=== PATIENT | female | born 1975 ===

== ENCOUNTER 2016-08-04 00:53 | Emergency (ER) | payer SELFPAY ==
[2016-08-04 03:07] VITALS: BMI 29.8
== END 2016-08-04 04:00 | disposition home or self-care (01) ==
LOC: H.EROB2 00:53
DX: O47.1 False labor at or after 37 completed weeks of gestation (principal); Z3A.39 39 weeks gestation of pregnancy

== ENCOUNTER 2016-08-08 17:34 | Inpatient (IN) | payer MEDICAID, SELFPAY ==
[2016-08-08] MEDS ORDERED: Lactated Ringer's 1,000 ML IV SCH (18:00)
[2016-08-08] MEDS ORDERED: Oxycodone/Acetaminophen 5/325 mg Tab PO PRN ×4 (19:11→21:58)
[2016-08-08] MEDS ORDERED: Benzocaine/Menthol SPRAY TOP PRN ×2 (19:11→21:58)
[2016-08-08 19:29] LABS: HEMATOCRIT 34.8 % (34.0-47.0); MEAN CELL VOLUME 80.1 fl (81.0-99.0); MEAN CORPUSCULAR HEMOGLOBIN 25.6 pg (27.0-31.0); RED CELL DISTRIBUTION WIDTH 17.1 % (11.5-14.5)
[2016-08-08 20:04] VITALS: BP 117/69; PULSE 70; RESP 18; O2SAT 100
--- NOTE | 2016-08-08 20:55 | OBDS ---
DELIVERY PERSONNEL Delivery Doctor: Doug Rivero MD Resident: Samuel MATERNAL INFORMATION Delivery Anesthesia: None Medications in Delivery: pitocin Estimated Blood Loss (ml): 150 Placenta Cultured: No Maternal Complications: None Provider Comments: of a live baby boy at 18:59 pm from cephalic presentation . The baby was bu lb suctioned on the perineum and transferred to maternal chest. No nuchal cord was noted. The cord wa s clamped, 3 vessel noted. Cord blood was obtained and sent to the lab. the placenta was delivered at 19:02 intact. Estimated blood loss was 150 ml. There was perineal lac 1st degree, that was repaired . The mother tolerated the procedure well. Baby to nursery with 9-9. LABOR SUMMARY EDC: 08/03/2016 00:00 No. Babies in Womb: 1 Attempted: No Labor Anesthesia: None LABOR INFORMATION Reason for Induction: Not Applicable Onset of Labor: 08/08/2016 05:00 Complete Dilatation: 08/08/2016 18:45 Oxytocin: N/A Group B Beta Strep: Negative Antibiotics # of Doses: 0 Antibiotics Time of Last Dose: none given Steroids Given: None Reason Steroids Not Administered: Not Applicable Other Reason Not Administered: not required MEMBRANES Membranes Rupture Method: Spontaneous Rupture of Membranes: 08/08/2016 18:45 Length of Rupture (hrs): 0.23 Amniotic Fluid Color: Clear Amniotic Fluid Amount: Small Amniotic Fluid Odor: Normal STAGES OF LABOR Stage 1 hrs: 13 Stage 1 min: 45 Stage 2 hrs: 0 Stage 2 min: 14 Stage 3 hrs: 0 Stage 3 min: 3 Total Time in Labor hrs: 14 Total Time in Labor min: 2 VAGINAL DELIVERY Episiotomy: None Laceration Extension: First Degree Laceration Type: Perineal Laceration Repair: Yes Laceration Repair Note: laceration repair 1st degre was repaired using 1% local lidocaine anesthesi a and Vicryl 3-0 subcuticular.procedure well tolerated Initial Vag Sponge Count: 15 Final Vag Sponge Count: 15 Initial Vag Sharps Count: 2 Final Vag Sharps Count: 2 Sponge Count Correct: Yes Sharps Count Correct: Yes Count Comment: Count correct BABY A INFORMATION Delivery Date/Time: 08/08/2016 18:59 Method of Delivery: Vaginal Born in Route : No : N/A Forceps: N/A Vacuum Extraction: N/A Shoulder Dystocia : No SHOULDER DYSTOCIA BABY A Delivery Date/Time: 08/08/2016 18:59 PRESENTATION/POSITION BABY A Presentation: Cephalic Cephalic Presentation: Vertex Breech Presentation: N/A PLACENTA INFORMATION BABY A Placenta Delivery Time : 08/08/2016 19:02 Placenta Method of Delivery: Spontaneous Placenta Status: Delivered SCORES BABY A Heart Rate 1 min: >100 bpm Resp Effort 1 min: Good Cry Reflex Irritability 1 min: Cough or Sneeze or Pulls Away Muscle Tone 1 min: Active Motion Color 1 min: Body Webb, Extremities Blue SCORE 1 MIN: 9 Heart Rate 5 min: >100 bpm Resp Effort 5 min: Good Cry Reflex Irritability 5 min: Cough or Sneeze or Pulls Away Muscle Tone 5 min: Active Motion Color 5 min: Body Webb, Extremities Blue Resuscitation Effort 5 min: N/A SCORE 5 MIN: 9 INFANT INFORMATION BABY A Gestational Age at Delivery: 40.0 Gestational Status: Term Outcome : Liveborn Condition : Stable Infant Sex: Male IDENTIFICATION/MEDS BABY A ID Band Number: [id number] ID Band Location: Right Leg; Right Arm WEIGHT/LENGTH BABY A Infant Birthweight (gms): 2895 Weight (lb): 6 Infant Weight (oz): 6 CORD INFORMATION BABY A No. Cord Vessels: 3 Nuchal Cord : N/A Cord Blood Taken: No Suction: Mouth; Nose ASSESSMENT BABY A Complications: None Physical Findings at Delivery: Within Normal Limits Infant Respirations: Appears Normal Medical Technologist Generalist/ALS Called : No Infant Care By: Kwame Clarke Transferred To: [facility]
[2016-08-08 21:58] VITALS: TEMP 97.2
[2016-08-09 08:01] LABS: MEAN CELL VOLUME 79.4 fl (81.0-99.0); MEAN CORPUSCULAR HEMOGLOBIN 25.8 pg (27.0-31.0); MEAN CORPUSCULAR HGB CONC 32.5 g/dL (33.0-37.0); RED CELL DISTRIBUTION WIDTH 17.2 % (11.5-14.5); WHITE BLOOD COUNT 9.2 K/uL (4.8-10.8)
--- NOTE | 2016-08-09 22:55 | OBPPN ---
Datetime: 08/09/2016 07:14 PP Pain Prov: Within normal limits PP Nausea Prov: Denies PP Flatus Prov: No PP BM Prov: No PP Breasts Prov: Normal PP Heart Prov: Normal PP Lungs Prov: Normal PP Abdomen/Uterus Prov: Normal PP Lochia Prov: Normal PP Vulva/Perineum Prov: Normal PP CVA Tenderness Prov: Normal PP Extremities Prov: Normal PP C/S Incision Prov: Not Applicable PP Progress Prov: Normal PP Comments Phys Exam Prov: Uterus: firm above umbilicus PP Impression Prov: Normal progression PP Plan Prov: Continue present management PP Progress Note Prov: 40 y/o seen and examined at bedside. Patient had uneventful overnig ht. Patient reports mild pelvic pain controlled w/ pain meds. OOB/Ambulating w/o dizziness. Breast /bottle feeding w/o difficulty. Tolerating PO diet well. Lochia is less than menses in volume. Voi ding freely w/ no blood noted. Reports flatus, but not bowel movement yet. Denies fevers, chills, n /v/d, CP/SOB, lightheadedness and calf pain. Assessment: 40 y/o s/p on 08/08/2016 @ 18:59 tolerating pain w/ medication, nixon ating oral intake, adequate urine output, doing well on PPD1. Plan: Ibuprofen 600 mg 1 tab Q6h PO prn for mild pain. -Percocet 5/325 mg 1-2 tabs PO Q6h prn for mod/severe pain. Encourage breast feeding and ambulation. Joao Ruiz PGY1 OB Hospitalist on-call....Pt seen and examined by me on rounds this morning. Agree with PGY1 note . MARGARETH Vital Signs Provider PP: Reviewed; Within Normal Limits
--- NOTE | 2016-08-10 11:24 | OBPPN ---
Datetime: 08/10/2016 05:54 PP Pain Prov: Within normal limits PP Nausea Prov: Denies PP Flatus Prov: Yes PP BM Prov: No PP Breasts Prov: Normal PP Heart Prov: Normal PP Lungs Prov: Normal PP Abdomen/Uterus Prov: Normal PP Lochia Prov: Normal PP Vulva/Perineum Prov: Normal PP CVA Tenderness Prov: Normal PP Extremities Prov: Normal PP C/S Incision Prov: Not Applicable PP Progress Prov: Normal PP Comments Phys Exam Prov: Uterus: firm level umbilicus PP Impression Prov: Normal progression PP Plan Prov: Continue present management; Discharge PP Progress Note Prov: 40 y/o seen and examined at bedside. Patient had uneventful overnig ht. Patient reports mild pelvic pain controlled w/ pain meds. OOB/Ambulating w/o dizziness. Breast /bottle feeding w/o difficulty. Tolerating PO diet well. Lochia is less than menses in volume. Voi ding freely w/ no blood noted. Reports flatus but no bowel movement yest. Denies fevers, chills, n /v/d, CP/SOB, lightheadedness and calf pain. Assessment: 40 y/o s/p on 08/08/2016 @ 18:59 tolerating pain w/ medication, nixon ating oral intake, adequate urine output, doing well on PPD2. Plan: Ibuprofen 600 mg 1 tab Q6h PO prn for mild pain. . Encourage breast feeding and ambulation. -Discharge home Joao Ruiz PGY1 The patient was seen with resident I agree with an outpatient cleared for discharge Vital Signs Provider PP: Reviewed; Within Normal Limits
--- NOTE | 2016-08-10 11:26 | OBDCSUM ---
Datetime: 08/10/2016 06:02 Discharged to, Provider: Home Follow up at, Provider: [facility] Disch Instr Activity: Normal activity; May Shower Disch Instr Diet: Regular Discharge Instructions, Provider: Routine instructions given Discharge Diagnosis, Provider: Term Delivered Discharge Time: 08/10/2016 06:03 Follow up in weeks, Provider: 6 weeks Disch Referrals: None Disch Activity Restrictions: No exercising; No lifting; No sexual activity; Nothing in vagina - Inte rcourse, tampons, douche Discharge Comment, Provider: 40 y/o s/p C @ 40.5 weeks GA Delivered baby boy on 08/08/16 @ 18:59 ,weight 2895 g , : 9-9 Patient doing well, stable for discharge. Prescription given for pain -Encourage -Tylenol 600 mg PO 1 tab PO Q6h for pain PRN -Discharge today Ambulate w/ caution, nothing in vagina, no heavy lifting, avoid stairs, if excessive bleeding or f ever without relief from Tylenol go to ED - Advised for F/U [facility] clinic in 6 week and 2-3 days for with peditrician. Joao Ruiz PGY1 The patient was seen with resident I agree with an outpatient cleared for discharge Datetime: 08/04/2016 03:50 Discharge Instructions, Provider: Routine instructions given
== END 2016-08-10 23:27 | disposition home or self-care (01) | DRG 373 ==
LOC: H.EROB2 17:34 → H.L&D 18:16 → H.OB/GYN 22:09
PROVIDERS: ADMIT Obstetrics & Gynecology; ATTEND Obstetrics & Gynecology
PROC: 0HQ9XZZ Repair Perineum Skin, External Approach (ICD-10-PCS; principal; 2016-08-08)
PROC: 10E0XZZ Delivery of Products of Conception, External Approach (ICD-10-PCS; 2016-08-08)
PROC: 4A1HXCZ Monitoring of Products of Conception, Cardiac Rate, External Approach (ICD-10-PCS; 2016-08-08)
DX: O70.0 First degree perineal laceration during delivery (principal); O09.523 Supervision of elderly multigravida, third trimester; Z3A.40 40 weeks gestation of pregnancy; Z37.0 Single live birth